=== PATIENT | male | born 1960 | race Caucasian/White ===

== ENCOUNTER 2018-04-10 14:45 | Emergency (ER) | payer OTHER ==
[2018-04-10 14:52] VITALS: TEMP 98.5
[2018-04-10 15:49] LABS: BASO % 0.5 % (0.0-2.0); EOS # 0.2 K/uL (0.0-0.7); EOS % 2.3 % (0.0-4.0); HEMOGLOBIN 16.9 g/dL (12.0-18.0); LYMPH # 2.9 K/uL (1.0-4.3); LYMPH % 31.9 % (20.0-40.0); MEAN CELL VOLUME 89.8 fL (80.0-94.0); MEAN CORPUSCULAR HEMOGLOBIN 30.6 pg (27.0-31.0); MEAN CORPUSCULAR HGB CONC 34.1 g/dL (33.0-37.0); MEAN PLATELET VOLUME 9.3 fL (7.2-11.7); MONO # 0.6 K/uL (0.0-0.8); MONO % 6.7 % (0.0-10.0); NEUT # 5.3 K/uL (1.8-7.0); NEUT % 58.6 % (50.0-75.0); RBC 5.53 Mil/uL (4.40-5.90); RED CELL DISTRIBUTION WIDTH 12.5 % (11.5-14.5); WHITE BLOOD COUNT 9.1 K/uL (4.8-10.8)
--- NOTE | 2018-04-10 15:59 | C.PDOC ---
History Of Present Illness 57 years old male with PMHx of HTN, hypercholesterolemia, diabetes, CAD (x2 Stents), presents to ED for complaints of right sided headache and right ear pain that began over a month ago. Patient states he saw his dentist 2 weeks ago and was prescribed antibiotics for pain but has now finished them. Patient describes pain as on and off. Patient currently denies any pain but states last time he experienced pain was this morning. Patient states he usually takes ibuprofen for relief but symptoms went away on their own today. Patient reports he did not take his blood pressure medication this morning. Patient also admits to smoking but denies alcohol use, drug use, or any other physical complaints. Patient also states he went to his PMD and was advised to see an ENT doctor but when he called the office, he was told the only available appointment would be scheduled in 3 days but he did not want to wait which prompted today's ER visit. PMD: * Tonia Perez Medications: * Metoprolol 25mg * Clopidogrel 75mg * Glimepiride 4mg * Kombiglyze 5,1000 mg * Simvastatin 10mg Time Seen by Provider: 04/10/18 15:23 Chief Complaint (Nursing): Headache History Per: Patient History/Exam Limitations: no limitations Onset/Duration Of Symptoms: Days Current Symptoms Are (Timing): Still Present Quality: "Pain" Preceeding Symptoms: None Recent travel outside of the [place]: No Past Medical History Reviewed: Historical Data, Nursing Documentation, Vital Signs Vital Signs: Last Vital Signs Temp 98.5 F 04/10/18 14:48 Pulse 102 H 04/10/18 14:48 Resp 18 04/10/18 14:48 BP 212/120 H 04/10/18 15:46 Pulse Ox 100 04/10/18 14:48 - Medical History PMH: CAD (X2 Stents ), Diabetes, HTN, Hypercholesterolemia Surgical History: Appendectomy, Cholecystectomy - [facility] Procedures CORONAR ARTERIOGR-2 CATH (07/17/14) INSERTION OF ONE VASCULAR STENT (07/17/14) INSRT OF DRUG-ELUTING CORON ARTERY STENTS(S) (07/17/14) LEFT HEART CARDIAC CATH (07/17/14) LT HEART ANGIOCARDIOGRAM (07/17/14) PERCUTANEOUS TRANSLUMINAL CORONARY ANGIOPLASTY [PTCA] (07/17/14) PROCEDURE ON SINGLE VESSEL (07/17/14) Family History: States: Diabetes - Social History Hx Tobacco Use: No Hx Alcohol Use: No Hx Substance Use: No - Immunization History Hx Tetanus Toxoid Vaccination: No Hx Influenza Vaccination: No Hx Pneumococcal Vaccination: No Review Of Systems Constitutional: Negative for: Fever, Chills ENT: Positive for: Ear Pain (Right ear) Cardiovascular: Negative for: Chest Pain Respiratory: Negative for: Shortness of Breath Gastrointestinal: Negative for: Nausea, Vomiting, Abdominal Pain, Diarrhea, Constipation Skin: Negative for: Rash Neurological: Positive for: Headache (Right sided greater than left ). Negative for: Weakness, Numbness Physical Exam - Physical Exam Appears: Well, Non-toxic, No Acute Distress Skin: Normal Color, Warm, Dry, No Rash Head: Atraumatic Eye(s): bilateral: Normal Inspection, EOMI Ear(s): Bilateral: Normal Nose: Normal Oral Mucosa: Moist Tongue: Normal Appearing Lips: Normal Appearing Teeth: Normal Dentition Gingiva: Normal Appearing Throat: Normal, No Erythema, No Exudate, No Drooling, No Mass Neck: Normal ROM, Supple Chest: Symmetrical, No Tenderness Cardiovascular: Rhythm Regular, No Murmur Respiratory: Normal Breath Sounds, No Rales, No Rhonchi, No Wheezing Gastrointestinal/Abdominal: Normal Exam, Bowel Sounds (Active ), Soft, No Tenderness, No Distention, No Guarding, No Rebound Back: Normal Inspection, No CVA Tenderness Extremity: Normal ROM, No Calf Tenderness Extremity: Bilateral: Atraumatic, Normal Color And Temperature, Normal ROM, Other (No pitting edema ) Pulses: Left Radial: Normal, Right Radial: Normal Neurological/Psych: Oriented x3, Normal Speech, Normal Motor, Normal Sensation, Other (No focal deficits ) Gait: Steady ED Course And Treatment - Laboratory Results Result Diagrams: 04/10/18 15:46 04/10/18 15:46 O2 Sat by Pulse Oximetry: 100 (RA) Pulse Ox Interpretation: Normal Medical Decision Making Medical Decision Making: Plan: * Lopressor * EKG * Blood work * Urinalysis Progress note: Pt's BP has improved and still with no headache while in ED. Pt has an appointment with ENT on April 13. I have instructed pt to follow up with ENT on Apr 13 and will d/c home. Disposition Counseled Patient/Family Regarding: Studies Performed, Diagnosis, Need For Followup - Disposition Referrals: Idris Alejandro MD [Staff Provider] - Disposition: HOME/ ROUTINE Disposition Time: 18:33 Condition: IMPROVED Additional Instructions: Mr. Johnson, thank you for letting us take care of you today. Return to the ER if your symptoms worsen, or if any problems. Make sure you take all your routine medications--including your blood pressure medication--as prescribed. Follow up with Dr. Alejandro -- the [id number] doctor on April 13 as previously scheduled. Instructions: Headache, Adult, High Blood Pressure in Adults Forms: [facility] (Turkmen) Print Language: PRYDEINIG - POA Present On Arrival: None - Clinical Impression Clinical Impression: Headache, Hypertension - Scribe Statement The provider has reviewed the documentation as recorded by the Scribjennifer Escalera All medical record entries made by the Scribe were at my direction and personally dictated by me. I have reviewed the chart and agree that the record accurately reflects my personal performance of the history, physical exam, medical decision making, and the department course for this patient. I have also personally directed, reviewed, and agree with the discharge instructions and disposition.
[2018-04-10 16:18] LABS: ALB/GLOB RATIO 1.7 (1.0-2.1); ALBUMIN 4.8 g/dL (3.5-5.0); ALT/SGPT 40 U/L (21-72); AST/SGOT 24 U/L (17-59); BLOOD UREA NITROGEN 13 mg/dL (9-20); CALCIUM 9.4 mg/dl (8.6-10.4); GFR NON-AFRICAN AMERICAN > 60
[2018-04-10 16:47] LABS: URINE BILIRUBIN NEGATIVE (NEGATIVE); URINE BLOOD NEGATIVE (NEGATIVE); URINE CLARITY Clear (Clear); URINE COLOR Straw (YELLOW); URINE GLUCOSE (UA) 3+ mg/dL (Normal); URINE LEUKOCYTE ESTERASE NEG Leu/uL (Negative); URINE PROTEIN 1+ mg/dL (NEGATIVE); URINE UROBILINOGEN NORMAL mg/dL (0.2-1.0)
[2018-04-10 17:38] VITALS: RESP 18; O2SAT 100
[2018-04-10] MEDS ORDERED: (Novolin R) Insulin Human Regular 100 units/ml vial ONE (18:02)
[2018-04-10] MEDS ORDERED: (Novolin R) Insulin Human Regular 100 units/ml vial SC ONE (18:09)
[2018-04-10 18:20] VITALS: BP 165/95; PULSE 82
[2018-04-10] MEDS ORDERED: (Novolin R) Insulin Human Regular 100 units/ml vial SC SCH (22:00)
--- NOTE | 2018-04-13 15:31 | CARD ---
APPROVED REPORT Date of service: 04/10/2018 EKG Measurement Heart [id number] <Conclusion> Normal sinus rhythm Rightward axis Borderline ECG
== END 2018-04-10 18:50 | disposition home or self-care (01) ==
LOC: C.ER 14:45
DX: R51 Headache (principal); I10 Essential (primary) hypertension; I25.10 Atherosclerotic heart disease of native coronary artery without angina pectoris; E11.9 Type 2 diabetes mellitus without complications; E78.00 Pure hypercholesterolemia, unspecified